=== PATIENT | male | born 1990 | race Caucasian/White ===

== ENCOUNTER → 2016-06-07 | Outpatient (CLI) | payer MEDICAID ==
[2016-06-07 12:18] LABS: EOS # 0.1 K/mm3 (0.0-0.50); EOS % 2.6 % (0.0-3.0); LYMPH # 1.8 K/mm3 (1.5-6.5); LYMPH % 31.4 % (24.0-44.0); MEAN CORPUSCULAR VOLUME 91.4 fl (80.0-96.0); MONO # 0.4 K/mm3 (0.0-0.8); MONO % 7.7 % (0.0-5.0); NEUTROPHILS # 2.8 K/mm3 (1.8-7.7); NEUTROPHILS % 54.8 % (36.0-66.0); RED CELL DISTRIBUTION WIDTH 12.5 % (11.5-14.5); WHITE BLOOD COUNT 5.2 K/mm3 (4.0-10.0)
[2016-06-07 12:25] LABS: ALBUMIN 4.2 GM/DL (3.2-5.2); ALBUMIN/GLOBULIN RATIO 1.45 (1.00-1.93); ALKALINE PHOSPHATASE 109 U/L (45-117); ALT/SGPT 20 U/L (12-78); ANION GAP 8 MEQ/L (8-16); AST/SGOT 12 U/L (15-37); BILIRUBIN,TOTAL 0.4 MG/DL (0.2-1.0); BLOOD UREA NITROGEN 11 MG/DL (7-18); CALCIUM LEVEL 9.1 MG/DL (8.5-10.1); CARBON DIOXIDE LEVEL 28 MEQ/L (21-32); CHLORIDE LEVEL 107 MEQ/L (98-107); CREATININE FOR GFR 0.94 MG/DL (0.70-1.30); GLOMERULAR FILTRATION RATE > 60.0 (>60); GLUCOSE, FASTING 99 MG/DL (70-105); POTASSIUM SERUM 4.6 MEQ/L (3.5-5.1); SODIUM LEVEL 143 MEQ/L (136-145); TOTAL PROTEIN 7.1 GM/DL (6.4-8.2)
== END ==
LOC: M LAB 11:15
PROVIDERS: ATTEND Physician Assistant Medical
DX: K58.0 Irritable bowel syndrome with diarrhea (principal)

== ENCOUNTER → 2016-06-09 | Outpatient (REF) | payer MEDICAID, MEDICARE | LOC: M LAB REF 18:43 | PROVIDERS: ATTEND Physician Assistant Medical | DX: K58.0 Irritable bowel syndrome with diarrhea (principal) ==

== ENCOUNTER → 2016-06-14 | Outpatient (CLI) | payer MEDICAID ==
[~2016-06-14] MED LIST: GASTROGRAFIN SOLUTION 30ML (Q9963) As Ordered ONE; ISOVUE-370 76% 100ML VIAL (Q9967) As Ordered ONE
--- NOTE | 2016-06-14 11:34 | REP ---
CT abdomen and pelvis without and with IV contrast and with bowel contrast on both phases of the study. Without IV contrast the study is performed of the abdomen. Pelvis is not included. After IV contrast abdomen and pelvis are scanned. Comparison 11/22/2012. The visualized lung miles are unremarkable. The hepatic parenchyma, gallbladder, pancreas and spleen are normal size, homogeneous and unremarkable on both phases of the study. The adrenals, kidneys and abdominal aorta are unremarkable on both phases of the study. There is no bowel distension or wall thickening. Pelvis: The appendix is unremarkable. The bladder is unremarkable. There is no adenopathy or mass. There is no ascites. The pelvic bowel loops are unremarkable. There is no wall thickening of the pelvic bowel loops. No pericolonic inflammation or edema. Impression: Essentially negative CT study of the abdomen and pelvis. There is no bowel distension or wall thickening. No mesenteric edema. No ascites or adenopathy. Signed by Wil Dawson MD 06/14/2016 11:25 A
== END ==
LOC: M RAD 09:09
PROVIDERS: ATTEND Physician Assistant Medical
DX: K58.0 Irritable bowel syndrome with diarrhea (principal)

== ENCOUNTER → 2016-08-19 | Outpatient (CLI) | payer MEDICARE, MEDICAID ==
[~2016-08-19] MED LIST changes: +BENT20TA PO; +BUSP10TA PO; -GASTROGRAFIN SOLUTION 30ML (Q9963) As Ordered ONE; -ISOVUE-370 76% 100ML VIAL (Q9967) As Ordered ONE
[2016-08-19 10:24] LABS: FREE T4 0.97 NG/DL (0.76-1.46)
== END ==
LOC: M LAB 08:45
PROVIDERS: ATTEND Internal Medicine Gastroenterology
DX: R19.7 Diarrhea, unspecified (principal)

== ENCOUNTER → 2016-09-04 | Outpatient (REF) | payer MEDICARE, MEDICAID | LOC: M LAB REF 10:21 | PROVIDERS: ATTEND Internal Medicine Gastroenterology | DX: R19.7 Diarrhea, unspecified (principal) ==

== ENCOUNTER → 2016-09-13 | Outpatient (CLI) | payer MEDICARE, MEDICAID ==
[~2016-09-13] VITALS: Ht 182.9 cm; Wt 72.3 kg
[~2016-09-13] MED LIST changes: +NS 1,000 ML IV ONE; +PROPOFOL 200 MG/20 ML VIAL As Ordered ONE
--- NOTE | 2016-09-13 16:07 | ROOR ---
Patient Name: Ammon Herr Procedure Date: 09/13/2016 3:49 PM Date of : 1990 Age: 25 Room: [facility] Gender: Male Note Status: Finalized Procedure: Colonoscopy Indications: Irritable bowel syndrome with diarrhea, Change in bowel habits Providers: Tremaine ARAUZ MD Referring MD: CHARLES MOTA Requesting Provider: Medicines: Monitored Anesthesia Care Complications: No immediate complications. Procedure: Pre-Anesthesia Assessment: - The heart rate, respiratory rate, oxygen saturations, blood pressure, adequacy of pulmonary ventilation, and response to care were monitored throughout the procedure. The Colonoscope was introduced through the anus and advanced to 7 cm into the ileum. The colonoscopy was performed without difficulty. The patient tolerated the procedure well. The quality of the bowel preparation was good. Findings: The perianal and digital rectal examinations were normal. Small Internal Hemorrhoids. The terminal ileum appeared normal. The entire examined colon appeared normal on direct and retroflexion views. Impression: - Small Internal Hemorrhoids. - The examined portion of the ileum was normal. - The entire examined colon is normal on direct and retroflexion views. - No specimens collected. - (Irritable Bowel Syndrome/IBS suspected.) Recommendation: - Use fiber, for example Citrucel, Fibercon, Konsyl or Metamucil. - Use Bentyl (dicyclomine) 20 mg PO QID 30 min AC. Tremaine Arauz MD Tremaine ARAUZ MD 09/13/2016 4:06:51 PM This report has been signed electronically. Number of Addenda: 0 Note Initiated On: 09/13/2016 3:49 PM Estimated Blood Loss: Estimated blood loss: none.
[2016-09-13 16:28] VITALS: BP 110/58
== END | disposition home or self-care (01) ==
LOC: M OPP 14:06
PROVIDERS: ATTEND Internal Medicine Gastroenterology
DX: K58.0 Irritable bowel syndrome with diarrhea (principal); R19.4 Change in bowel habit; K44.9 Diaphragmatic hernia without obstruction or gangrene; J45.909 Unspecified asthma, uncomplicated; R01.1 Cardiac murmur, unspecified; Z87.19 Personal history of other diseases of the digestive system; Z80.3 Family history of malignant neoplasm of breast; F17.210 Nicotine dependence, cigarettes, uncomplicated; Z79.899 Other long term (current) drug therapy

== ENCOUNTER → 2017-04-15 | Outpatient (REF) | payer MEDICARE, MEDICAID ==
[~2017-04-15] MED LIST changes: -NS 1,000 ML IV ONE; -PROPOFOL 200 MG/20 ML VIAL As Ordered ONE
== END ==
LOC: M LAB REF 19:19
PROVIDERS: ATTEND Physician Assistant Medical
DX: J02.9 Acute pharyngitis, unspecified (principal)

== ENCOUNTER 2017-10-23 21:32 | Emergency (ER) | payer MEDICARE, MEDICAID | END 2017-10-23 23:50 | disposition left against medical advice (07) | LOC: M ED 23:50 | DX: Z53.21 Procedure and treatment not carried out due to patient leaving prior to being seen by health care provider (principal) ==

== ENCOUNTER 2017-12-29 00:44 | Emergency (ER) | payer MEDICARE, MEDICAID ==
[2017-12-29] MEDS: TETRACAINE 0.5% OPHTH SOLN 4ML OU (01:17)
[2017-12-29] MEDS: LISSAMINE GREEN OPHTH 1.5 MG STRIP OU (01:40)
[2017-12-29] MEDS: NAPROXEN 250 MG TAB PO (02:14)
[2017-12-29] MEDS: ERYTHROMYCIN OPHTH OINT OU (02:15)
== END 2017-12-29 02:15 | disposition home or self-care (01) ==
LOC: M ED 00:44
DX: H16.8 Other keratitis (principal); Z87.2 Personal history of diseases of the skin and subcutaneous tissue; F17.210 Nicotine dependence, cigarettes, uncomplicated
CPT/HCPCS: 99282

== ENCOUNTER → 2018-06-19 | Outpatient (CLI) | payer OTHER, SELFPAY ==
[~2018-06-19] MED LIST changes: +ERYTOIN8 OU; +NAPR-837 PO
--- NOTE | 2018-06-19 14:32 | REP ---
LEFT WRIST COMPLETE: 06/19/2018. Clinical history: Injury to the left hand and wrist toward the thumb. Comparison: Left hand series today. Findings: Four view show distal radius and ulna without fracture or focal lesion. Carpal bones show no significant abnormal widening of the joint spaces. There is soft tissue swelling over the dorsal aspect of the wrist at the base of the thumb region without fracture, avulsion or subluxation. No abnormal soft-tissue calcification. Visualized metacarpals intact. Impression: 1. Soft tissue swelling dorsal aspect of the wrist and at the base of the thumb region. No gross evidence for fracture, avulsion, subluxation or other acute bony finding. Electronically Signed by Bryan Duffy MD 06/19/2018 05:50 P
--- NOTE | 2018-06-19 14:32 | REP ---
LEFT HAND COMPLETE: 06/19/2018. Clinical history: An injury of left hand toward the thumb. Comparison: Left wrist today. Findings: Four views show distal radius and ulna without fracture or focal lesion. Some minor soft tissue swelling dorsal aspect of the wrist and base of the thumb. I see no visible or displaced fracture of the carpal bones or metacarpals. MCP, IP joints grossly intact. No avulsions or erosions. There is a bone island in the proximal head of the proximal phalanx, fifth digit. Impression: 1. Some soft tissue swelling dorsal aspect of the hand and at the base of the thumb without visible or displaced fracture, avulsion, subluxation or other acute bony finding. Electronically Signed by Bryan Duffy MD 06/19/2018 05:50 P
== END ==
LOC: M LRY 13:13
PROVIDERS: ATTEND Physician Assistant
DX: S69.92XA Unspecified injury of left wrist, hand and finger(s), initial encounter (principal); X58.XXXA Exposure to other specified factors, initial encounter; Y92.89 Other specified places as the place of occurrence of the external cause; Y93.9 Activity, unspecified; Y99.9 Unspecified external cause status

== ENCOUNTER → 2018-10-02 | Outpatient (CLI) | payer OTHER ==
[~2018-10-02] MED LIST changes: +E-Z-PAQUE 96% w/w SUSP 176GM BTL As Ordered ONE
--- NOTE | 2018-10-06 09:59 | REP ---
Small bowel follow-through The procedure was performed under the direct supervision of Dr. Clancy. The images were reviewed with Dr. Clancy. The cavalry scout film shows no organomegaly or pathological masses. The intestinal gas pattern is nonspecific. Liquid barium was administered and the barium column was followed through the small bowel to the level of the terminal ileum. Small bowel transit time is approximately 30 minutes . During fluoroscopy gentle palpation shows all loops are freely movable and pliable. There are no fixed or angulated loops. The small bowel mucosal pattern is normal in course and caliber. There is no transition to suggest a partial small bowel obstruction. Spot filming of the terminal ileum shows it to be unremarkable. Impression: Small bowel follow-through examination within normal limits. 1 minute of fluoro time was utilized for this procedure. Reviewed by VANITA Duke 10/02/2018 03:28 P Electronically Signed by Wil Clancy MD 10/06/2018 09:50 A
== END ==
LOC: M RAD 09:23
PROVIDERS: ATTEND Internal Medicine Gastroenterology
DX: K58.0 Irritable bowel syndrome with diarrhea (principal)